=== PATIENT | female | born 1945 | race Caucasian/White ===

== ENCOUNTER 2017-11-24 16:14 | Emergency (ER) | payer MEDICARE, BC, SELFPAY ==
[2017-11-24 16:15] VITALS: BP 185/74; PULSE 99; RESP 20; TEMP 37; O2SAT 96
--- NOTE | 2017-11-24 16:38 | ED.NEUROSD ---
HPI - Neuro Symptoms/Deficit General Chief Complaint: Neuro Symptoms/Deficit Stated Complaint: something wrong, can't remember anything Time Seen by Provider: 11/24/17 16:22 Source: patient and family Mode of arrival: ambulatory Limitations: no limitations History of Present Illness HPI Narrative: Patient is a 72-year-old female here for evaluation of memory loss. and patient is with her at bedside. They state that approximately 1.5 hr ago she had a sudden onset of not being able to remember things. states that she has had this in the past and has been diagnosed with transient global amnesia. Patient denies any other symptoms. She does acknowledge that she is having problems remembering things. It does appear that she is forming new memories. She states that at the time of my exam the some of the things that she could not remember earlier in the day have come back to her. Patient is a diabetic and they took her blood sugar at home and it was 92. They did give her some fruit. They also state that her blood pressure was slightly elevated at home. Related Data Home Medications Medication Instructions Recorded Confirmed Metformin Hydrochloride 1,000 mg PO BID #0 05/13/10 (Glucophage) insulin aspart U-100 [Novolog 0 unit SQ TIDCC #0 12/30/11 Flexpen U-100 Insulin] insulin glargine [Lantus U-100 #0 12/30/11 Insulin] atorvastatin [Lipitor] 20 mg PO HS #0 03/04/16 cholecalciferol (vitamin D3) 1,000 unit PO QDAY #0 03/04/16 [Vitamin D3] levothyroxine [Synthroid] 0.075 mg PO QAM #0 03/04/16 Previous Rx's Medication Instructions Recorded amoxicillin-pot clavulanate 875 mg PO BID #20 tab 03/04/16 [Augmentin] fluconazole [Diflucan] 150 mg PO QDAY #1 tab 03/04/16 nitrofurantoin monohyd/m-cryst 100 mg PO Q12H #14 bot 12/22/16 [Macrobid] phenazopyridine [Pyridium] 100 mg PO TID #10 tab 12/22/16 ciprofloxacin HCl [Cipro] 500 mg PO BID #6 tab 01/01/17 phenazopyridine [Pyridium] 200 mg PO TID #6 tab 01/01/17 Allergies Allergy/AdvReac Type Severity Reaction Status Date / Time azithromycin [AZITHROMYCIN] Allergy Unknown Unverified 08/08/17 11:56 oxytetracycline Allergy Unknown Unverified 08/08/17 11:56 [From TERRAMYCIN] Review of Systems Constitutional Denies fatigue, Denies fever(s), Denies headache(s) and Denies weakness Eyes Denies blurry vision, Denies diplopia and Denies loss of vision ENT Ears, Nose, Mouth, and Throat: Denies vertigo, Denies dizziness, Denies headache(s) and Denies disequilibrium Cardiovascular Denies chest pain and Denies dyspnea Respiratory Denies cough and Denies dyspnea Gastrointestinal Gastrointestinal: Denies abdominal pain, Denies nausea and Denies vomiting Musculoskeletal Denies abnormal gait, Denies myalgias, Denies arthralgias and Denies tingling Integumentary/Breasts Denies lesions and Denies rash Neurologic Denies abnormal speech, Denies abnormal gait, Denies vertigo, Denies dizziness, Denies headache(s), Denies lack of coordination, Denies focal weakness, Denies loss of vision, Reports memory loss, Denies tingling, Denies paresthesias, Denies disequilibrium and Denies weakness Psychiatric Reports memory loss Endocrine Denies fatigue Hematologic/Lymphatic Denies easy bleeding and Denies easy bruising [facility] Medical History Transient global amnesia (Acute) Surgical History History of thyroidectomy Status post hysterectomy Social History Smoking Status: Current every day smoker Comment: Reviewed patient's past medical surgical family and social history Exam Initial Vital Signs Initial Vital Signs: Vital Signs Temperature 98.6 F 11/24/17 16:15 Pulse Rate 99 H 11/24/17 16:15 Respiratory Rate 20 11/24/17 16:15 Blood Pressure 185/74 H 11/24/17 16:15 Pulse Oximetry 96 11/24/17 16:15 Const General: cooperative, healthy appearing, comfortable, well developed, well groomed and No acute distress Orientation: alert, awake and oriented x3 HENMT Head: normal to inspection and normocephalic Eyes General: appearance normal, both eyes and all related structures Pupils: PERRL EOM: EOM intact bilaterally Resp Effort & Inspection: normal respiratory effort Auscultation: clear to auscultation bilaterally Cardio Rate: regular rate Rhythm: regular rhythm Heart Sounds: murmur systolic III/ GI Inspection: normal to inspection Palpation: soft Skin General: no rashes or lesions noted Lesions: no lesions Rashes: no rashes Neuro General: alert and awake Cranial Nerves: CN's II-XI intact bilaterally Speech: speech normal Gait: normal gait Motor: muscle tone normal throughout Sensory Exam: no sensory deficits noted Other: Patient did know her name and her 's name and her date. She did have some problems with the year however after I told her the year she was able to repeat that several times again in the future. Patient was able to tell me the president but she was told with the present was upon arrival here by nursing staff. No other focal neurologic deficits Extrem General: normal to inspection, full ROM and capillary refill normal Psych Appearance: grossly normal and well kempt Course Vital Signs - 8 hr 11/24/ 16:15 Temperature 98.6 F Pulse Rate 99 H Respiratory Rate 20 Blood Pressure 185/74 H Pulse Oximetry 96 MDM - Neuro Symptoms/Deficit MDM Narrative Medical decision making narrative: Patient with isolated memory issues. She does seem to be able to remember things in the distant past and is able to form new memories. She feels like her memory is returning. Her agrees with this. She has no other neurologic findings. Patient was not hypoglycemic at home. Has had transient global amnesia in the past. Has no other neurologic symptoms. Will hold on any further workup for now. Will hold on head CT for now. They were given return precautions both the patient and the expressed understanding and agreement with plan Discharge Plan Departure Patient Disposition: Home, Self-Care Clinical Impression: Amnesia Instructions: DI for Amnesia, DI for Transient Global Amnesia Activity Restrictions/Additional Instructions: Recommend you continue all of your medications like we discussed. Contact your primary care doctor for a follow-up. Return to the emergency department for any new or worsening symptoms Prescriptions: No Action Metformin Hydrochloride (Glucophage) 1,000 mg PO BID Qty: 0 RF: 0 insulin glargine [Lantus U-100 Insulin] 100 UNIT/1 ML solution Qty: 0 RF: 0 insulin aspart U-100 [Novolog Flexpen U-100 Insulin] 100 UNIT/1 ML insulin pen SQ TIDCC Qty: 0 RF: 0 cholecalciferol (vitamin D3) [Vitamin D3] 1,000 UNIT tablet 1,000 unit PO QDAY Qty: 0 RF: 0 atorvastatin [Lipitor] 20 MG tablet 20 mg PO HS Qty: 0 RF: 0 levothyroxine [Synthroid] 75 MCG tablet 0.075 mg PO QAM Qty: 0 RF: 0 fluconazole [Diflucan] 150 MG tablet 150 mg PO QDAY Qty: 1 RF: 0 amoxicillin-pot clavulanate [Augmentin] 875 MG/125 MG tablet 875 mg PO BID Qty: 20 RF: 0 phenazopyridine [Pyridium] 100 MG tablet 100 mg PO TID Qty: 10 RF: 0 nitrofurantoin monohyd/m-cryst [Macrobid] 100 MG capsule 100 mg PO Q12H Qty: 14 RF: 0 phenazopyridine [Pyridium] 200 MG tablet 200 mg PO TID Qty: 6 RF: 0 ciprofloxacin HCl [Cipro] 500 MG tablet 500 mg PO BID Qty: 6 RF: 0
[2017-11-24 17:28] VITALS: BP 157/72; PULSE 89; RESP 18; O2SAT 97
== END 2017-11-24 17:33 | disposition home or self-care (01) ==
PROVIDERS: Emergency Provider Emergency Medicine; PCP Specialist
DX: R41.3 Other amnesia (principal)
CPT/HCPCS: 81003; 99282; 99283; 99291

== ENCOUNTER → 2018-03-12 08:33 | Outpatient (CLI) | payer MEDICARE, BC, SELFPAY ==
--- NOTE | 2018-03-12 | DI.MG.S_ITS ---
BILATERAL DIGITAL SCREENING MAMMOGRAM 3D/2D WITH CAD: 03/12/2018 CLINICAL: Routine screening. Family history of breast cancer. Comparison is made to exams dated: 03/06/2017 mammogram, 03/03/2016 mammogram, and 02/23/2015 mammogram - [facility]. There are scattered fibroglandular elements in both breasts. Current study was also evaluated with a Computer Aided Detection (CAD) system. There are benign calcifications in both breasts. No significant masses, calcifications, or other findings are seen in either breast. There has been no significant interval change. IMPRESSION: There is no mammographic evidence of malignancy. A 1 year screening mammogram is recommended. NOTE: For mammograms, a report in lay terms will be sent to the patient. Approximately 15% of breast malignancies will not be visualized mammographically. In the management of a palpable breast mass, a negative mammogram must not discourage biopsy of a clinically suspicious lesion. Electronically Signed By: Tuyet farias/elijah:03/13/2018 12:47:35 letter sent: Normal Exam ACR BI-RADS Category 2: Benign Finding(s) 3342F
== END ==
PROVIDERS: PCP Specialist; Visit Provider Specialist
DX: Z12.31 Encounter for screening mammogram for malignant neoplasm of breast (principal); Z80.3 Family history of malignant neoplasm of breast
CPT/HCPCS: 77063; 77067

== ENCOUNTER → 2018-07-17 10:14 | Outpatient (CLI) | payer MEDICARE, BC, SELFPAY ==
[2018-07-17 10:23] LABS: Bacteria Urine None Seen; RBC Urine None Seen (0-5/HPF); WBC Urine None Seen (0-5/HPF)
[2018-07-17 10:42] LABS: Appearance Urine UA CLEAR; Bilirubin Urine UA NEGATIVE (NEGATIVE); Color Urine UA YELLOW; Glucose Urine UA NEGATIVE (Negative); Ketones Urine UA NEGATIVE (NEGATIVE); Leukocyte Esterase Urine UA NEGATIVE (NEGATIVE); Nitrite Urine UA NEGATIVE (Negative); Occult Blood Urine UA TRACE-LYSED (Negative); Protein Urine UA NEGATIVE (Negative); Specific Gravity Urine UA 1.025 (1.000-1.035); Urobilinogen Urine UA 0.2 E.U./dL (0.2)
[2018-07-17 10:50] LABS: Add Manual Diff / Slide Review NO; Basophils Absolute Auto 0 /uL (0-100); Basophils Percent Auto 1.2 % (0-2); Eosinophils Absolute Auto 200 /uL (0-450); Eosinophils Percent Auto 4.3 % (2-4); Lymphocytes Absolute Auto 1600 /uL (1100-4500); Lymphocytes Percent Auto 38.8 % (25-40); Mean Corpuscular HGB Conc 33.2 % (30-36); Mean Corpuscular Hemoglobin 28.6 PG (26-34); Mean Corpuscular Volume 86.2 fL (80-100); Monocytes Absolute Auto 500 /uL (0-900); Monocytes Percent Auto 12.1 % (3-14); Neutrophils Absolute Auto 1800 /uL (1500-7000); Neutrophils Percent Auto 43.6 % (50-75); Platelet Count 216 X10^3/uL (150-400); Red Blood Cell Count 5.23 X10^6/uL (4.0-5.2); Red Cell Distribution Width 13.2 % (11.6-14.8)
[2018-07-17 10:51] LABS: Culture Indicated Urine Cult Not Indicated; Urine Comments Microscopic Normal
[2018-07-17 11:05] LABS: Hemoglobin A1C% w Est Avg Glu 7.3 % (4.0-6.0)
[2018-07-17 11:12] LABS: Alanine Aminotransferase 54 IU/L (9-52); Albumin 4.4 g/dL (3.5-5.0); Albumin Globulin Ratio 1.6 (1.0-2.8); Alkaline Phosphatase 64 U/L (38-126); Aspartate Aminotransferase 33 IU/L (14-36); BUN Creatinine Ratio 23.8 (6-22); Bilirubin Total 0.3 mg/dL (0.2-1.3); Blood Urea Nitrogen 19 mg/dL (7-17); Calcium 9.9 mg/dL (8.4-10.2); Carbon Dioxide 27 mmol/L (22-32); Chloride 100 mmol/L (98-107); Cholesterol 136 mg/dL (140-199); Estimated Glomerular Filt Rate > 60.0 mL/min (>60); Globulin 2.7 g/dL (1.7-4.1); Glucose 135 mg/dL (80-110); HDL Cholesterol 48 mg/dL (40-60); HEMOLYSIS < 15 (0-50); LDL Cholesterol Calculated 65 mg/dL (<100); Potassium 4.7 mmol/L (3.4-5.1); Sodium 139 mmol/L (137-145); Total Protein 7.1 g/dL (6.3-8.2); Triglycerides 114 mg/dL (35-150)
[2018-07-17 11:29] LABS: Free T4, Direct Thyroxine 1.24 ng/dL (0.78-2.19)
[2018-07-17 11:42] LABS: Thyroid Stimulating Hormone 1.61 uIU/mL (0.47-4.68)
== END ==
PROVIDERS: PCP Specialist; Visit Provider Specialist
DX: I10 Essential (primary) hypertension (principal); E03.8 Other specified hypothyroidism; E11.9 Type 2 diabetes mellitus without complications; E78.2 Mixed hyperlipidemia
CPT/HCPCS: 36415; 80053; 80061; 81001; 83036; 84439; 84443; 85025

== ENCOUNTER → 2019-03-13 09:39 | Outpatient (CLI) | payer MEDICARE, BC, SELFPAY ==
--- NOTE | 2019-03-13 | DI.MG.S_ITS ---
BILATERAL DIGITAL SCREENING MAMMOGRAM 3D/2D WITH CAD: 03/13/2019 CLINICAL: Routine screening. Family history of breast cancer. Comparison is made to exams dated: 03/12/2018 mammogram, 03/06/2017 mammogram, and 03/03/2016 mammogram - [facility]. There are scattered fibroglandular elements in both breasts. Current study was also evaluated with a Computer Aided Detection (CAD) system. There are benign calcifications in both breasts. No significant masses, calcifications, or other findings are seen in either breast. There has been no significant interval change. IMPRESSION: There is no mammographic evidence of malignancy. A 1 year screening mammogram is recommended. This exam was interpreted at Station ID: [id number]. NOTE: For mammograms, a report in lay terms will be sent to the patient. Approximately 15% of breast malignancies will not be visualized mammographically. In the management of a palpable breast mass, a negative mammogram must not discourage biopsy of a clinically suspicious lesion. Electronically Signed By: Johnathon méndez/elijah:03/13/2019 14:28:46 letter sent: Normal Exam ACR BI-RADS Category 2: Benign Finding(s) 3342F
== END ==
PROVIDERS: PCP Specialist; Visit Provider Specialist
DX: Z12.31 Encounter for screening mammogram for malignant neoplasm of breast (principal); Z80.3 Family history of malignant neoplasm of breast
CPT/HCPCS: 77063; 77067

== ENCOUNTER → 2020-03-15 10:24 | Outpatient (CLI) | payer MEDICARE, BC, SELFPAY ==
--- NOTE | 2020-03-15 | DI.MG.S_ITS ---
BILATERAL DIGITAL SCREENING MAMMOGRAM 3D/2D WITH CAD: 03/15/2020 CLINICAL: Routine screening. Family history of breast cancer. Comparison is made to exams dated: 03/13/2019 mammogram, 03/12/2018 mammogram, and 03/06/2017 mammogram - [facility]. There are scattered fibroglandular elements in both breasts. Current study was also evaluated with a Computer Aided Detection (CAD) system. There are benign calcifications in both breasts. No significant masses, calcifications, or other findings are seen in either breast. There has been no significant interval change. IMPRESSION: BENIGN There is no mammographic evidence of malignancy. A 1 year screening mammogram is recommended. This exam was interpreted at Station ID: [id number]. NOTE: For mammograms, a report in lay terms will be sent to the patient. Approximately 15% of breast malignancies will not be visualized mammographically. In the management of a palpable breast mass, a negative mammogram must not discourage biopsy of a clinically suspicious lesion. Electronically Signed By: Abel swartz/elijah:03/15/2020 11:09:56 letter sent: Normal Exam ACR BI-RADS Category 2: Benign Finding(s) 3342F
== END ==
PROVIDERS: PCP Specialist; Referring Provider Specialist; Visit Provider Specialist
DX: Z12.31 Encounter for screening mammogram for malignant neoplasm of breast (principal)
CPT/HCPCS: 77063; 77067

== ENCOUNTER → 2021-03-16 10:31 | Outpatient (CLI) | payer MEDICARE, BC, SELFPAY ==
--- NOTE | 2021-03-16 | DI.MG.S_ITS ---
BILATERAL DIGITAL SCREENING MAMMOGRAM 3D/2D WITH CAD: 03/16/2021 CLINICAL: Routine screening. Comparison is made to exams dated: 03/15/2020 mammogram, 03/13/2019 mammogram, and 03/12/2018 mammogram - [facility]. There are scattered fibroglandular elements in both breasts. Current study was also evaluated with a Computer Aided Detection (CAD) system. There are benign calcifications in both breasts. No significant masses, calcifications, or other findings are seen in either breast. There has been no significant interval change. IMPRESSION: BENIGN There is no mammographic evidence of malignancy. A 1 year screening mammogram is recommended. This exam was interpreted at Station ID: [id number]. NOTE: For mammograms, a report in lay terms will be sent to the patient. Approximately 15% of breast malignancies will not be visualized mammographically. In the management of a palpable breast mass, a negative mammogram must not discourage biopsy of a clinically suspicious lesion. Electronically Signed By: Simon tyler/elijah:03/16/2021 11:29:44 letter sent: Normal Exam ACR BI-RADS Category 2: Benign Finding(s) 3342F
== END ==
PROVIDERS: PCP Specialist; Referring Provider Specialist; Visit Provider Specialist
DX: Z12.31 Encounter for screening mammogram for malignant neoplasm of breast (principal)
CPT/HCPCS: 77063; 77067

== ENCOUNTER → 2022-03-17 10:37 | Outpatient (CLI) | payer MEDICARE, BC, SELFPAY ==
--- NOTE | 2022-03-17 | DI.MG.S_ITS ---
BILATERAL DIGITAL SCREENING MAMMOGRAM 3D/2D WITH CAD: 03/17/2022 CLINICAL: Routine screening. Comparison is made to exams dated: 03/16/2021 mammogram, 03/15/2020 mammogram, and 03/13/2019 mammogram - [facility]. There are scattered areas of fibroglandular density in both breasts (category b / 25%-50% glandular tissue). Current study was also evaluated with a Computer Aided Detection (CAD) system. There are benign calcifications in both breasts. No significant masses, calcifications, or other findings are seen in either breast. There has been no significant interval change. IMPRESSION: BENIGN There is no mammographic evidence of malignancy. A 1 year screening mammogram is recommended. Based on the Tyrer Cuzick model (a risk assessment model) the patient's lifetime risk is 7.8% and her 10 year risk is 7.8%. According to the ACR, ACS, and NCCN guidelines, an annual breast MRI exam along with mammogram is recommended if the patient's lifetime risk is 20% or greater. This exam was interpreted at Station ID: [id number]. NOTE: For mammograms, a report in lay terms will be sent to the patient. Approximately 15% of breast malignancies will not be visualized mammographically. In the management of a palpable breast mass, a negative mammogram must not discourage biopsy of a clinically suspicious lesion. Electronically Signed By: Abel swartz/penrad:03/17/2022 10:59:31 letter sent: Normal Exam ACR BI-RADS Category 2: Benign Finding(s) 3342F
== END ==
PROVIDERS: PCP Specialist; Referring Provider Specialist; Visit Provider Specialist
DX: Z12.31 Encounter for screening mammogram for malignant neoplasm of breast (principal)
CPT/HCPCS: 77063; 77067

== ENCOUNTER 2022-07-04 17:10 | Emergency (ER) | payer MEDICARE, BC, SELFPAY ==
--- NOTE | 2022-07-04 | DI.RAD.S_ITS ---
PROCEDURE: XR SHOULDER LT MIN 2V INDICATIONS: SHOULDER PAIN AFTER FALL TECHNIQUE: 3 views of the shoulder were acquired. COMPARISON: None. FINDINGS: Bones: No fractures or dislocations. No suspicious bony lesions. Visualized ribs appear intact. Degenerative changes of the acromioclavicular joint and glenohumeral joint. Soft tissues: No suspicious soft tissue calcifications. IMPRESSION: 1. No acute abnormality. 2. Degenerative changes. Dictated by: Abel oCllins M.D. on 07/04/2022 at 17:58 Approved by: Abel Collins M.D. on 07/04/2022 at 17:59
[2022-07-04 17:50] VITALS: BP 140/73; PULSE 85; RESP 15; TEMP 36; O2SAT 96; BMI 35.8
--- NOTE | 2022-07-04 17:59 | DI.RAD.S_ITS ---
PROCEDURE: XR WRIST LT MIN 3V INDICATIONS: fall,on eliquis TECHNIQUE: 4 views of the wrist were acquired. COMPARISON: [facility], , WRIST MINIMUM 3 VIEWS LEFT, 06/15/2015, 13:43. FINDINGS: Bones: Degenerative changes the 1st metatarsophalangeal joint and triscaphe joint. The bones are demineralized. Scaphoid view: No fracture Soft tissues: No suspicious soft tissue calcifications. IMPRESSION: No acute abnormality. Degenerative changes. Dictated by: Abel Collins M.D. on 07/04/2022 at 17:53 Approved by: Abel Collins M.D. on 07/04/2022 at 17:55
--- NOTE | 2022-07-04 17:59 | DI.CT.S_ITS ---
PROCEDURE: CT HEAD/BRAIN WO CON INDICATIONS: fall,on eliquis TECHNIQUE: Noncontrast 4.5 mm thick angled axial sections acquired from the foramen magnum to the vertex, with coronal and sagittal reformats. For radiation dose reduction, the following was used: automated exposure control, adjustment of mA and/or kV according to patient size. COMPARISON: [facility], CT, HEAD WITHOUT CONTRAST, 05/20/2013, 8:28. FINDINGS: Image quality: Excellent. CSF spaces: Basal cisterns are patent. No extra-axial fluid collections. Ventricles are normal in size and shape. Brain: No midline shift. No intracranial masses or hemorrhage. Chavarria-white matter interface is normal. Subcortical and periventricular white matter hypodensities are consistent with small vessel ischemic disease. Skull and face: Calvarium and visualized facial bones are intact, without suspicious lesions. Sinuses: Visualized sinuses and mastoids are clear. IMPRESSION: 1. No acute intracranial abnormality. 2. Cerebral volume loss and small vessel ischemic changes. Dictated by: Abel Collins M.D. on 07/04/2022 at 17:56 Approved by: Abel Collins M.D. on 07/04/2022 at 17:58
--- NOTE | 2022-07-04 20:01 | ED.FALL ---
HPI - Fall General Chief Complaint: Fall Stated Complaint: fall, lt wrist and arm pain Time Seen by Provider: 07/04/22 19:54 Source: patient Mode of arrival: Ambulatory Limitations: no limitations History of Present Illness HPI Narrative: Patient is a 76-year-old female who is here for evaluation of a left arm injury. She stated that she was working with her doing some renovations in the house. She was trying to pull a piece of wood off the wall and she fell backwards. She did hit her head on the wall. No loss of consciousness. She then landed on her left side. She is having fairly significant left shoulder left elbow left wrist discomfort. She did not lose consciousness she is on anticoagulation. She denies any neck pain. Related Data Home Medications Medication Instructions Recorded Confirmed insulin aspart U-100 100 unit/mL 0 unit SQ TIDCC ##0 12/30/11 12/24/20 (3 mL) subcutaneous pen (Novolog FlexPen U-100 Insulin aspart) cholecalciferol (vitamin D3) 25 1,000 unit PO QDAY ##0 03/04/16 12/24/20 mcg (1,000 unit) tablet (Vitamin D3) levothyroxine 75 mcg tablet 0.075 mg PO QAM ##0 03/04/16 12/24/20 (Synthroid) actos PO DAILY 12/24/20 apixaban 5 mg tablet (Eliquis) 5 mg PO DAILY 12/24/20 12/24/20 insulin glargine U-300 conc 300 45 unit SUBCUT DAILY 12/24/20 12/24/20 unit/mL (1.5 mL) subcutaneous pen (Toujeo SoloStar U-300 Insulin) semaglutide 1 mg/dose (2 mg/1.5 1,000 mg SUBCUT QWEEK 12/24/20 12/24/20 mL) subcutaneous pen injector (Ozempic) ezetimibe 10 mg tablet (Zetia) 10 mg PO DAILY 06/01/21 06/01/21 Respironics D2 11/28/21 11/28/21 Previous Rx's Medication Instructions Recorded ondansetron 4 mg disintegrating 4 mg PO Q6H PRN nausea and 07/04/22 tablet vomiting #14 tabs oxycodone-acetaminophen 5 mg-325 1 tab PO Q4-6H PRN pain #14 tabs 07/04/22 mg tablet (Percocet) Allergies Allergy/AdvReac Type Severity Reaction Status Date / Time azithromycin [AZITHROMYCIN] Allergy Intermediate SOB, Verified 07/04/22 17:54 hypoxemia, projectile vomiting oxytetracycline Allergy Intermediate SOB, Verified 07/04/22 17:54 [From TERRAMYCIN] hypoxemia, projectile vomiting Review of Systems Constitutional Constitutional: Reports system reviewed and no additional complaints, except as documented Cardiovascular Cardiovascular: Reports system reviewed and no additional complaints, except as documented Musculoskeletal Musculoskeletal: Reports system reviewed and no additional complaints, except as documented Integumentary/Breasts Skin/Breast: Reports system reviewed and no additional complaints, except as documented Neurologic Neurologic: Reports system reviewed and no additional complaints, except as documented Hematologic/Lymphatic On Anticoagulants: Yes Patient History Medical History Closed fracture of left distal radius Cutaneous sarcoidosis Excessive daytime sleepiness Family history of malignant neoplasm of breast in first degree relative (11/20/14) 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 Obesity (BMI 30-39.9) (03/05/18) Obstructive sleep apnea of adult Primary insomnia Sinus pressure Snoring Transient global amnesia Type 2 diabetes mellitus UTI (urinary tract infection) Surgical History History of thyroidectomy Status post hysterectomy Social History marital status: details: to Abel household members: spouse lives independently: Yes caregiver/support person: No occupational status: previously employed Smoking Status: Never smoker Smoking Status: Never smoker alcohol intake frequency: holidays/special occasions only Substance Use Type: does not use Exam Initial Vital Signs Initial Vital Signs: Vital Signs Temperature 96.8 F L 07/04/22 17:50 Pulse Rate 85 07/04/22 17:50 Respiratory Rate 15 07/04/22 17:50 Blood Pressure 140/73 07/04/22 17:50 Pulse Oximetry 96 07/04/22 17:50 Oxygen Delivery Method Room Air 07/04/22 17:50 Const General: cooperative and No ill appearing HENMT Head: normal to inspection and normocephalic Cardio Pulses: radial pulses present on the left Skin General: no rashes or lesions noted Neuro General: patient alert, patient awake and moves all extremities Sensory Exam: no sensory deficits noted Extrem Other: Discomfort with palpation throughout the left shoulder. Her left scapula is only mildly tender. She is no tenderness over the clavicle. No anterior chest tenderness has discomfort with abduction. Her left elbow is also painful to move. Has limited range of motion because of the discomfort. Same with her left wrist. Course Orders Ordered: ED Orders 07/04/22 20:03 XR elbow LT min 3V Stat Discontinued Medications Acetaminophen (Acetaminophen 325 Mg Tablet) 975 mg PO NOW ONE Stop: 07/04/22 20:00 Last Admin: 07/04/22 20:18 Dose: Not Given Documented By: LISA Hydrocodone Bitart/Acetaminophen (Hydrocodone/Acet 5/325 Tablet) 1 tab PO NOW ONE Stop: 07/04/22 20:03 Last Admin: 07/04/22 20:13 Dose: 1 tab Documented By: LISA Ondansetron HCl (Ondansetron 4 Mg Odt Prepack) 1 bottle MISC SEEINSTR ONE Stop: 07/04/22 21:33 Last Admin: 07/04/22 21:54 Dose: 1 bottle Documented By: CAMILO Ondansetron HCl (Ondansetron 4 Mg Odt) 4 mg SL NOW ONE Stop: 07/04/22 21:33 Last Admin: 07/04/22 21:54 Dose: 4 mg Documented By: CAMILO Oxycodone/Acetaminophen (Oxycodone/Apap 5/325 Prepack) 1 bottle MISC SEEINSTR ONE Stop: 07/04/22 21:33 Last Admin: 07/04/22 21:54 Dose: 1 bottle Documented By: CAMILO Vital Signs Vital signs: Vital Signs - 8 hr 07/04/22 22:02 Pulse Rate 88 Respiratory Rate 16 Blood Pressure 168/79 H Pulse Oximetry 96 Oxygen Delivery Method Room Air MDM - Fall Imaging Data Extremity x-ray #1: Radiologist's Impression: PROCEDURE:? XR SHOULDER LT MIN 2V ? INDICATIONS:? SHOULDER PAIN AFTER FALL ? TECHNIQUE:? 3 views of the shoulder were acquired.? ? COMPARISON:? None. ? FINDINGS:? ? Bones:? No fractures or dislocations.? No suspicious bony lesions.? Visualized ribs appear intact.? Degenerative changes of the acromioclavicular joint and glenohumeral joint. ? Soft tissues:? No suspicious soft tissue calcifications.? ? IMPRESSION:? 1. No acute abnormality. 2. Degenerative changes.? Extremity x-ray #2: Radiologist's Impression: PROCEDURE:? XR WRIST LT MIN 3V ? INDICATIONS: fall,on eliquis ? TECHNIQUE:? 4 views of the wrist were acquired.? ? COMPARISON:? [facility], CR, WRIST MINIMUM 3 VIEWS LEFT, 06/15/2015, 13:43. ? FINDINGS:? ? Bones:? Degenerative changes the 1st metatarsophalangeal joint and triscaphe joint.? The bones are demineralized. ? Scaphoid view:? No fracture ? Soft tissues:? No suspicious soft tissue calcifications.? ? IMPRESSION:? No acute abnormality.? Degenerative changes. Extremity x-ray #3: Radiologist's Impression: PROCEDURE:? XR ELBOW LT MIN 3V ? INDICATIONS:? pain after fall ? TECHNIQUE:? 4 views of the elbow were acquired.? ? COMPARISON:? None. ? FINDINGS:? ? Evaluation limited by suboptimal positioning. ? Bones:? No definite fractures or dislocations.? No suspicious bony lesions.? ? Soft tissues:? No definite elbow joint effusion with evaluation limited by suboptimal positioning.? No suspicious soft tissue calcifications.? ? ? IMPRESSION:? ? 1. No definite fracture or dislocation. CT scan - head: Radiologist's Impression: PROCEDURE:? CT HEAD/BRAIN WO CON ? INDICATIONS:? fall,on eliquis ? TECHNIQUE:? Noncontrast 4.5 mm thick angled axial sections acquired from the foramen magnum to the vertex, with coronal and sagittal reformats.? For radiation dose reduction, the following was used:? automated exposure control, adjustment of mA and/or kV according to patient size.? ? COMPARISON:? [facility], CT, HEAD WITHOUT CONTRAST, 05/20/2013, 8:28. ? FINDINGS:? Image quality:? Excellent.? ? CSF spaces:? Basal cisterns are patent.? No extra-axial fluid collections.? Ventricles are normal in size and shape.? ? Brain:? No midline shift.? No intracranial masses or hemorrhage.? Chavarria-white matter interface is normal. ? Subcortical and periventricular white matter hypodensities are consistent with small vessel ischemic disease. ? Skull and face:? Calvarium and visualized facial bones are intact, without suspicious lesions.? ? Sinuses:? Visualized sinuses and mastoids are clear.? ? IMPRESSION:? 1. No acute intracranial abnormality. 2. Cerebral volume loss and small vessel ischemic changes.? MDM Narrative Medical decision making narrative: Head CT is unremarkable. Cervical spine cleared by nexus criteria. Tenderness to palpation and movement throughout her left shoulder elbow and wrist. There were no fractures noted on the x-rays. No indication of dislocation. I did discuss the x-ray findings with her. Informed her that there still could be a soft tissue injury and that if her symptoms do not improve over the next couple days that she may need referral to see Physical therapy or Orthopedics. Was given a sling for comfort. She was given return precautions. She expressed understanding and agreement. Discharge Plan Departure Patient Disposition: Home Clinical Impression: Arm injury Instructions: How to Use a Sling, How To Perform RICE (Rest, Ice, Compress, Elevate) Activity Restrictions/Additional Instructions: There were no fractures noted on the x-rays so you can move your left shoulder and left wrist and left elbow as tolerated. Use the pain medication as needed. You do need to follow-up with your primary doctor. Return to the emergency department for any new symptoms. Prescriptions: New ondansetron 4 mg tablet,disintegrating 4 mg PO Q6H PRN (Reason: nausea and vomiting) Qty: 14 0RF oxycodone-acetaminophen [Percocet] 5-325 mg tablet 1 tab PO Q4-6H PRN (Reason: pain) Qty: 14 0RF No Action insulin aspart U-100 [Novolog FlexPen U-100 Insulin] 100 UNIT/1 ML insulin pen 0 unit SQ TIDCC Qty: 0 cholecalciferol (vitamin D3) [Vitamin D3] 1,000 UNIT tablet 1,000 unit PO QDAY Qty: 0 levothyroxine [Synthroid] 75 MCG tablet 0.075 mg PO QAM Qty: 0 ezetimibe [Zetia] 10 mg tablet 10 mg PO DAILY Toujeo SoloStar U-300 Insulin 300 unit/mL (1.5 mL) insulin pen 45 unit SUBCUT DAILY Eliquis 5 mg tablet 5 mg PO DAILY Ozempic 1 mg/dose (2 mg/1.5 mL) pen injector 1,000 mg SUBCUT QWEEK actos 5 mg PO DAILY (DME) Respironics D2 See Rx Instructions .ROUTE .MEDSUPPLY Rx Instructions: CPAP Min: 10 Max: 16 DME: Donna VIOLETA: 03/30/17 Referrals: Herson Cortes MD [Primary Care Provider] - Stand Alone Forms: Patient Portal/API
--- NOTE | 2022-07-04 20:03 | DI.RAD.S_ITS ---
PROCEDURE: XR ELBOW LT MIN 3V INDICATIONS: pain after fall TECHNIQUE: 4 views of the elbow were acquired. COMPARISON: None. FINDINGS: Evaluation limited by suboptimal positioning. Bones: No definite fractures or dislocations. No suspicious bony lesions. Soft tissues: No definite elbow joint effusion with evaluation limited by suboptimal positioning. No suspicious soft tissue calcifications. IMPRESSION: 1. No definite fracture or dislocation. Dictated by: Johnathon Moe M.D. on 07/04/2022 at 21:15 Approved by: Johnathon Moe M.D. on 07/04/2022 at 21:20
[2022-07-04] MEDS: HYDROCODONE/ACET 5/325 TABLET 1 TAB PO (20:13)
[2022-07-04] MEDS: ONDANSETRON 4 MG ODT PREPACK 1 BOTTLE MISC (21:54)
[2022-07-04] MEDS: OXYCODONE/APAP 5/325 PREPACK 1 BOTTLE MISC (21:54)
[2022-07-04] MEDS: ONDANSETRON 4 MG ODT SL (21:54)
[2022-07-04 22:02] VITALS: BP 168/79; PULSE 88; RESP 16; O2SAT 96
== END 2022-07-04 22:03 | disposition home or self-care (01) ==
PROVIDERS: Emergency Provider Emergency Medicine; PCP Specialist
DX: S49.92XA Unspecified injury of left shoulder and upper arm, initial encounter (principal); S09.90XA Unspecified injury of head, initial encounter; W18.30XA Fall on same level, unspecified, initial encounter; Z79.899 Other long term (current) drug therapy
CPT/HCPCS: 70450; 73030; 73080; 73110; 99284